=== PATIENT | male | born 1990 | race Caucasian/White ===

== ENCOUNTER 2019-05-17 19:29 | Emergency (ER) | payer OTHER ==
[2019-05-17 20:07] VITALS: O2SAT 96
--- NOTE | 2019-05-17 20:15 | ERPHSYRPT ---
- History of Present Illness Source: patient Exam Limitations: no limitations Patient Subjective Stated Complaint: left lower pain in jaw shooting into front of jaw. dentist said pt needs wisdom teeth removed. pt has had some out but not all. pt states pain is from the back two teeth on the left side bottom. Triage Nursing Assessment: pt states he heard his tooth break two days ago while eating. it has been hurting ever since. no visible swelling or redness to face noted. Physician History: Pt is a 28 y/o male with a recent h/o dental pain secondary to broken tooth. Pt states, broke his tooth two days ago, and now has some pain. No other complains. The tooth is a molar in the left lower jaw. Timing/Duration: abrupt onset Severity: moderate ENT Location: dental Prearrival Treatment: no prearrival treatment Modifying Factors: Improves With: nothing Associated Symptoms: jaw pain (on the L lower jaw) Hx Tetanus, Diphtheria Vaccination/Date Given: No Hx Influenza Vaccination/Date Given: No Hx Pneumococcal Vaccination/Date Given: No Immunizations Up to Date: No - Review of Systems Constitutional: No Fever, No Chills Eyes: No Symptoms Ears, Nose, & Throat: Mouth Pain (secondary to broken tooth.) Respiratory: No Cough, No Dyspnea - Past Medical History Pertinent Past Medical History: No Other Medical History: all wisdom teeth on top removed. trauma to right arm 8 yrs ago - Past Surgical History Past Surgical History: No Other Surgical History: dental surgery - Social History Smoking Status: Current every day smoker How long have you smoked: 8 Exposure to second hand smoke: Yes Drug Use: marijuana Patient Lives Alone: No - Nursing Vital Signs Nursing Vital Signs: Initial Vital Signs Temperature 97.6 F 05/17/19 19:51 Pulse Rate 75 05/17/19 19:51 Respiratory Rate 18 05/17/19 19:51 Blood Pressure 162/90 05/17/19 19:51 O2 Sat by Pulse Oximetry 96 05/17/19 19:51 Pain Scale Pain Intensity 7 - Physical Exam General Appearance: no apparent distress, alert Eye Exam: bilateral eye: PERRL, EOMI Ear Exam: bilateral ear: auricle normal, canal normal Nasal Exam: normal inspection Throat Exam: dental tenderness (left lower jaw, secondary to broken tooth) SpO2: 96 - Course Nursing assessment & vital signs reviewed: Yes - Progress Progress: unchanged Progress Note: 05/17/19 20:13 Pt was instructed to f/u with a dentist. I recommended him to take Ibuprofen OTC for pain, and explained that only a dentist can do anything with a broken tooth. Will see patient in: office Counseled pt/family regarding: need for follow-up - Departure Departure Disposition: Home Clinical Impression: Broken tooth Condition: Stable Critical Care Time: No Additional Instructions: F/U with a dentist and use OTC Ibuprofen for pain.
[2019-05-17 20:41] VITALS: BP 134/84; PULSE 84
== END 2019-05-17 20:38 | disposition home or self-care (01) ==
LOC: ED 19:29
DX: S02.5XXA Fracture of tooth (traumatic), initial encounter for closed fracture (principal); X58.XXXA Exposure to other specified factors, initial encounter; Y93.89 Activity, other specified
CPT/HCPCS: 99283

== ENCOUNTER 2019-09-14 12:16 | Emergency (ER) | payer MEDICAID, OTHER ==
[2019-09-14] MEDS ORDERED: Rocephin 1000 MG INJ IM ONE (12:39)
--- NOTE | 2019-09-14 12:39 | ERPHSYRPT ---
- History of Present Illness Time Seen by Provider: 09/14/19 12:25 Source: patient Exam Limitations: no limitations Patient Subjective Stated Complaint: Pt states "My throat hurts, started yesterday." Triage Nursing Assessment: Pt presented alert and oriented X 3, skin pwd Pt ambualtse with an upright steady gait, able to speak in clear full sentences Pt tonsils swollen and touching. Physician History: ppatient is a 29-year-old male who presents with a complaint of sore throat for 24 hours. He has a history of frequent episodes of strep pharyngitis. He has had a fever at home. Denies other symptoms.. Timing/Duration: hour(s) (24) Cough Quality/Degree: no cough Possible Cause: frequent episodes Modifying Factors: Improves With: nothing Associated Symptoms: fever, sore throat International travel in last 2 weeks: No Allergies/Adverse Reactions: No Known Drug Allergies Allergy (Unverified 09/14/19 12:26) Hx Tetanus, Diphtheria Vaccination/Date Given: No Hx Influenza Vaccination/Date Given: No Hx Pneumococcal Vaccination/Date Given: No Immunizations Up to Date: Yes - Review of Systems Constitutional: Fever Eyes: No Symptoms Ears, Nose, & Throat: Mouth Pain, Throat Pain, Throat Swelling, Painful Swallowing - Past Medical History Pertinent Past Medical History: No Other Medical History: all wisdom teeth on top removed. trauma to right arm 8 yrs ago - Past Surgical History Past Surgical History: Yes Other Surgical History: dental surgery - Social History Smoking Status: Current every day smoker How long have you smoked: years Exposure to second hand smoke: Yes Drug Use: marijuana Patient Lives Alone: No - Nursing Vital Signs Nursing Vital Signs: Initial Vital Signs Temperature 101.5 F 09/14/19 12:20 Pulse Rate 116 H 09/14/19 12:20 Respiratory Rate 18 09/14/19 12:20 Blood Pressure 139/84 09/14/19 12:20 O2 Sat by Pulse Oximetry 99 09/14/19 12:20 Pain Scale Pain Intensity 6 - Physical Exam General Appearance: no apparent distress, alert Eye Exam: PERRL/EOMI, eyes nml inspection Ears, Nose, Throat Exam: TMs normal, moist mucous membranes, pharyngeal erythema , tonsillar exudate Neck Exam: normal inspection, non-tender, supple, full range of motion Respiratory Exam: normal breath sounds, lungs clear, No respiratory distress Cardiovascular Exam: regular rate/rhythm, normal heart sounds Gastrointestinal/Abdomen Exam: soft, No tenderness Back Exam: normal inspection, No CVA tenderness, No vertebral tenderness Extremity Exam: normal inspection, normal range of motion Neurologic Exam: alert, oriented x 3, cooperative, normal mood/affect, sensation nml, No motor deficits Skin Exam: normal color, warm, dry, No rash Lymphatic Exam: No adenopathy SpO2: 99 - Course Nursing assessment & vital signs reviewed: Yes Ordered Tests: Medication Summary Discontinued Medications Generic Name Dose Route Start Last Admin Trade Name Suzie PRN Reason Stop Dose Admin Ceftriaxone Sodium 1,000 mg 09/14/19 12:39 09/14/19 12:48 Rocephin 1000 Mg Inj IM 09/14/19 12:40 1,000 mg STAT ONE Administration Ceftriaxone Sodium Confirm 09/14/19 12:44 Rocephin 1000 Mg Inj Administered 09/14/19 12:45 Dose 1,000 mg .ROUTE .STK-MED ONE Methylprednisolone Sodium Succinate 125 mg 09/14/19 12:40 09/14/19 12:48 Solu-Medrol 125 Mg IM 09/14/19 12:41 125 mg STAT ONE Administration Methylprednisolone Sodium Succinate Confirm 09/14/19 12:44 Solu-Medrol 125 Mg Administered 09/14/19 12:45 Dose 125 mg .ROUTE .STK-MED ONE Lab/Rad Data: Laboratory Results 09/14/19 Range/Units Unknown Group A Strep Antibody POSITIVE (NEGATIVE) - Progress Progress: unchanged Air Movement: good Blood Culture(s) Obtained: No Antibiotics given: Yes - Departure Departure Disposition: Home Clinical Impression: Strep pharyngitis Condition: Stable Critical Care Time: No Referrals: DOCTOR,NO FAMILY [Primary Care Provider] - Instructions: Strep Throat (DC) Prescriptions: Cephalexin Mh 500 mg [Keflex 500 mg] 500 mg PO TID #21 capsule Prednisone 10 mg [Deltasone 10 mg] 10 mg PO TID #12 tablet
[2019-09-14] MEDS ORDERED: solu-MEDROL 125 MG IM ONE (12:40)
[2019-09-14] MEDS ORDERED: solu-MEDROL 125 MG ONE (12:44)
[2019-09-14] MEDS ORDERED: Rocephin 1000 MG INJ ONE (12:44)
[2019-09-14 13:24] VITALS: BP 133/70; PULSE 114
[2019-09-14 13:29] VITALS: O2SAT 99
== END 2019-09-14 13:40 | disposition home or self-care (01) ==
LOC: ED 12:16
DX: J02.0 Streptococcal pharyngitis (principal); R50.9 Fever, unspecified
CPT/HCPCS: 87651; 96372; 99284; J0696; J2930

== ENCOUNTER 2021-03-09 17:10 | Emergency (ER) | payer MEDICAID ==
--- NOTE | 2021-03-09 18:00 | ERPHSYRPT ---
- History of Present Illness Time Seen by Provider: 03/09/21 17:12 Source: patient Exam Limitations: no limitations Patient Subjective Stated Complaint: Patient states he has had sore throat for 5 days and a dry cough. States he started new job today and does not want to be sick. states he has been afebrile Triage Nursing Assessment: Patient presents to ED c/o cough and sore throat x5 days Physician History: 30 years old male presented in the ER with chief complaint of sore throat for the last 5 days with progressive worsening. Patient reported increased swelling both tonsils which are 2 swallow solid food but denies any difficulty breathing. Denies any fever or chills. Does report having some mandibular/cervical and lymph nodes enlargement. Timing/Duration: gradual onset, persistent, days (5) Severity: moderate ENT Location: throat Prearrival Treatment: no prearrival treatment Associated Symptoms: No fever, No chills, No nasal congestion/drainage Allergies/Adverse Reactions: No Known Drug Allergies Allergy (Verified 03/09/21 17:41) Hx Tetanus, Diphtheria Vaccination/Date Given: Yes Hx Influenza Vaccination/Date Given: No Hx Pneumococcal Vaccination/Date Given: No Immunizations Up to Date: Yes Travel Risk - International Travel Have you traveled outside of the country in past 3 weeks: No - Coronavirus Screening Are you exhibiting any of the following symptoms?: No Close contact with a COVID-19 positive Pt in past 14-21 Days: No - Vaccine Status Have you recieved a Covid-19 vaccination: No - Review of Systems Constitutional: No Symptoms Eyes: No Symptoms Ears, Nose, & Throat: Throat Pain, Throat Swelling, Painful Swallowing Respiratory: No Symptoms Cardiac: No Symptoms Abdominal/Gastrointestinal: No Symptoms Musculoskeletal: No Symptoms Skin: No Symptoms Neurological: No Symptoms Psychological: No Symptoms - Past Medical History Pertinent Past Medical History: No Other Medical History: all wisdom teeth on top removed. trauma to right arm 8 yrs ago - Past Surgical History Past Surgical History: Yes Other Surgical History: dental surgery - Social History Smoking Status: Current every day smoker How long have you smoked: years Exposure to second hand smoke: Yes Drug Use: marijuana Patient Lives Alone: Yes - Nursing Vital Signs Nursing Vital Signs: Initial Vital Signs Temperature 98 F 03/09/21 17:32 Pulse Rate 108 H 03/09/21 17:32 Blood Pressure 149/109 03/09/21 17:32 O2 Sat by Pulse Oximetry 100 03/09/21 17:32 Pain Scale Pain Intensity 2 - Physical Exam General Appearance: no apparent distress, alert Eye Exam: bilateral eye: normal inspection, PERRL, EOMI Ear Exam: bilateral ear: auricle normal, canal normal, TM normal Nasal Exam: normal inspection Throat Exam: pharynx swelling, pharynx tenderness, tonsillar exudate, tonsillar swelling, uvula swelling, No tongue swollen, No trismus Neck Exam: normal inspection, non-tender, supple, full range of motion Cardiovascular/Respiratory Exam: normal breath sounds, regular rate/rhythm Abdominal Exam: non-tender, soft, no organomegaly Neurologic Exam: alert, oriented x 3, cooperative Skin Exam: normal color SpO2 Interpretation: normal SpO2: 100 O2 Delivery: Room Air Lab/Rad Data: Laboratory Results 03/09/21 Range/Units 17:49 Group A Strep Antibody DETECTED (NEGATIVE) - Progress Progress: unchanged Progress Note: 03/09/21 17:58 Has bilateral enlarged tonsils approaching midline/kissing uvula. Would start him on antibiotics and a short course of steroid. Recommended supportive care with Tylenol ibuprofen and outpatient follow-up. Counseled pt/family regarding: diagnosis, need for follow-up - Departure Departure Disposition: Home Clinical Impression: Acute pharyngitis Qualifiers: Pharyngitis/tonsillitis etiology: other specified organisms Qualified Code(s): J02.8 - Acute pharyngitis due to other specified organisms Condition: Stable Critical Care Time: No Referrals: DOCTOR,NO FAMILY [Primary Care Provider] - AURELIA LARRY DO [ACTIVE STAFF] - Follow Up with PCP/3 days Instructions: Sore Throat, Adult (DC), Strep Throat (DC) Additional Instructions: Do warm salt water gargles. Take Tylenol/ibuprofen as needed for pain. Take soft diet. Follow-up with primary care physician for reevaluation. Return to ER for worsening pain, difficulty swallowing, difficulty breathing, fever chills or increasing swelling in the throat/etc. Prescriptions: Amoxicillin/Potassium Clav [Augmentin 875-125 Tablet] 875 mg PO BID 10 Days #20 tablet Prednisone 20 mg [Deltasone 20 mg] 60 mg PO DAILY 5 Days #15 tablet
[2021-03-09 18:18] VITALS: BP 107/82; PULSE 96
[2021-03-11 07:40] VITALS: O2SAT 100
== END 2021-03-09 18:23 | disposition home or self-care (01) ==
LOC: ED 17:10
DX: J02.8 Acute pharyngitis due to other specified organisms (principal)
CPT/HCPCS: 87651; 99283

== ENCOUNTER 2021-09-19 17:33 | Emergency (ER) | payer MEDICAID ==
--- NOTE | 2021-09-19 18:45 | ERPHSYRPT ---
- History of Present Illness Time Seen by Provider: 09/19/21 17:39 Source: patient Exam Limitations: no limitations Patient Subjective Stated Complaint: pt c/o symptoms starting 09/15/21, reports fatigue, headache, sensitivity to light, intermittent cough, and no taste. st ates he was exposed to a positive family member. Triage Nursing Assessment: pt is aox3, pt appears in no distress, pupils perrl, afebrile, resps easy and non labored, cap refill < 2 seconds, pt skin pink warm dry. Physician History: 31 years old unvaccinated against COVID-19 presented in the ER with flulike symptoms for the last 3 days. Patient reports off-and-on headache, muscle ache, nasal congestion, nonproductive cough with feeling of malaise, tiredness and lack of energy. He went to work and was recommended to have COVID-19 test done before he can come back. Patient wants COVID-19 test done. He has a moderate headache for the last 3 days, has taken Aleve prior to arrival and does not want any other medication. Timing/Duration: day(s) (3), gradual onset, worse Cough Quality/Degree: mild, dry cough Possible Cause: illness exposure Modifying Factors: Improves With: exertion Associated Symptoms: chills, cough, muscle aches, nasal congestion, sore throat, No wheezing Allergies/Adverse Reactions: No Known Drug Allergies Allergy (Verified 09/19/21 18:20) Hx Tetanus, Diphtheria Vaccination/Date Given: Yes Hx Influenza Vaccination/Date Given: No Hx Pneumococcal Vaccination/Date Given: No Immunizations Up to Date: Yes Travel Risk - International Travel Have you traveled outside of the country in past 3 weeks: No - Coronavirus Screening Are you exhibiting any of the following symptoms?: Yes Symptoms: Cough: New Onset, Loss of Taste or Smell, Headaches/Body Aches/Fatigue Close contact with a COVID-19 positive Pt in past 14-21 Days: Yes - Vaccine Status Have you recieved a Covid-19 vaccination: No - Review of Systems Constitutional: Fatigue, Weakness Eyes: No Symptoms Ears, Nose, & Throat: Nose Congestion, Throat Pain Respiratory: Cough Cardiac: No Symptoms Abdominal/Gastrointestinal: No Symptoms Genitourinary Symptoms: No Symptoms Musculoskeletal: Myalgias Skin: No Symptoms Neurological: Headache Psychological: No Symptoms Endocrine: No Symptoms Hematologic/Lymphatic: No Symptoms Immunological/Allergic: No Symptoms - Past Medical History Pertinent Past Medical History: No Other Medical History: all wisdom teeth on top removed. trauma to right arm 8 yrs ago - Past Surgical History Past Surgical History: Yes Musculoskeletal: Other Other Surgical History: dental surgery. tendon reconstruction r arm - Social History Smoking Status: Current every day smoker How long have you smoked: years Exposure to second hand smoke: Yes Drug Use: marijuana Patient Lives Alone: No - Nursing Vital Signs Nursing Vital Signs: Initial Vital Signs Temperature 97.6 F 09/19/21 18:09 Pulse Rate 71 09/19/21 18:09 Respiratory Rate 18 09/19/21 18:09 Blood Pressure 162/103 09/19/21 18:09 O2 Sat by Pulse Oximetry 97 09/19/21 18:09 Pain Scale Pain Intensity 5 - Physical Exam General Appearance: no apparent distress, alert Eye Exam: PERRL/EOMI, eyes nml inspection Ears, Nose, Throat Exam: normal ENT inspection, TMs normal, pharynx normal, moist mucous membranes Neck Exam: normal inspection, non-tender, supple, full range of motion Respiratory Exam: normal breath sounds, lungs clear Cardiovascular Exam: regular rate/rhythm, normal heart sounds Gastrointestinal/Abdomen Exam: soft, normal bowel sounds, No tenderness Back Exam: normal inspection, normal range of motion Extremity Exam: normal inspection, normal range of motion, pelvis stable Neurologic Exam: alert, oriented x 3, cooperative, alteration hand II-XII nml as tested, normal mood/affect, nml cerebellar function, nml station & gait, sensation nml, No motor deficits Skin Exam: normal color SpO2 Interpretation: normal SpO2: 97 O2 Delivery: Room Air - Progress Progress: unchanged Air Movement: good Progress Note: 09/19/21 18:46 COVID-19 testing is done. Patient is recommended contact/droplet precautions. Offered symptomatic treatment for headache which she refused. Lungs bilateral clear to auscultation and not in any distress, do not think needs any other work-up and is stable for discharge. Blood Culture(s) Obtained: No Antibiotics given: No Counseled pt/family regarding: lab results, diagnosis, need for follow-up - Departure Departure Disposition: Home Clinical Impression: Exposure to COVID-19 virus Condition: Stable Critical Care Time: No Referrals: DOCTOR,NO FAMILY [Primary Care Provider] - Follow up/PCP as directed EVER DIAZ MD [ACTIVE STAFF] - Follow Up with PCP/3 days Instructions: Headache, Adult (DC) Additional Instructions: Take Tylenol/Aleve as needed. Drink plenty of fluids. Follow-up with primary care for reevaluation. Follow contact/droplet precautions until your COVID-19 test is back. Return to ER for any worsening cough, difficulty breathing, intractable headache etc.
[2021-09-19 19:19] VITALS: BP 132/78; PULSE 87; O2SAT 99
== END 2021-09-19 19:16 | disposition home or self-care (01) ==
LOC: ED 17:33
DX: R68.83 Chills (without fever) (principal); R05.9 Cough, unspecified; M79.10 Myalgia, unspecified site; Z20.822 Contact with and (suspected) exposure to COVID-19; R09.81 Nasal congestion; J02.9 Acute pharyngitis, unspecified; Z72.0 Tobacco use
CPT/HCPCS: 99283; U0003

== ENCOUNTER 2022-05-19 19:25 | Emergency (ER) | payer SELFPAY ==
[2022-05-19] MEDS ORDERED: XYLOCAINE 1% HCL 20 ML MDV IJ ONE (19:26)
[2022-05-19 19:32] VITALS: BP 146/90; PULSE 91; O2SAT 97
[2022-05-19] MEDS ORDERED: Rocephin 1000 MG INJ ONE (19:42)
[2022-05-19] MEDS ORDERED: BACTRIM DS TABLET PO ONE (19:42)
--- NOTE | 2022-05-19 19:46 | ERPHSYRPT ---
- History of Present Illness Time Seen by Provider: 05/19/22 19:41 Source: patient Exam Limitations: no limitations Patient Subjective Stated Complaint: I think I have a spider bite on my face. Triage Nursing Assessment: pt ambulated into ER with difficulty. Pt c/o a spider bite to the left side of his chin, which appeared about 3 days ago. 1.8 cm L x 1.4 cm W. Area is scabbed over at the bottom, pustule looking at the top. Surrounding area is red, swollen and tender to touch. Physician History: This is a 31-year-old white male who does not have a primary care physician and came to the emergency room 3 days after he noticed what he thought was maybe a spider bite to the area. However, it occurred at night and he did not actually see an insect bite him. He does have facial hair. He has not had a fever. The swelling has increased and there is tenderness present. It is just below his lower lip on the left side. He did say he squeezed out pus a couple days ago and it seemed to improve but then the swelling increased. Patient states he has no known drug allergies Timing/Duration: day(s) (3) Quality: painful Severity: mild Location: face (Lower lip left side) Possible Causes: no cause identified Associated Symptoms: change in skin texture, No fever Allergies/Adverse Reactions: No Known Drug Allergies Allergy (Verified 05/19/22 19:41) Hx Tetanus, Diphtheria Vaccination/Date Given: Yes Hx Influenza Vaccination/Date Given: No Hx Pneumococcal Vaccination/Date Given: No Immunizations Up to Date: Yes Travel Risk - International Travel Have you traveled outside of the country in past 3 weeks: No - Coronavirus Screening Are you exhibiting any of the following symptoms?: No Close contact with a COVID-19 positive Pt in past 14-21 Days: No - Vaccine Status Have you recieved a Covid-19 vaccination: No - Review of Systems Constitutional: No Symptoms Eyes: No Symptoms Ears, Nose, & Throat: No Symptoms Respiratory: No Symptoms Cardiac: No Symptoms Abdominal/Gastrointestinal: No Symptoms Genitourinary Symptoms: No Symptoms Musculoskeletal: No Symptoms Skin: Induration (And swelling with tenderness left side lower lip and under lower lip) Neurological: No Symptoms Psychological: No Symptoms Endocrine: No Symptoms Hematologic/Lymphatic: No Symptoms Immunological/Allergic: No Symptoms All Other Systems: Reviewed and Negative - Past Medical History Pertinent Past Medical History: Yes Respiratory History: Pneumonia Other Medical History: all wisdom teeth on top removed. trauma to right arm 8 yrs ago - Past Surgical History Past Surgical History: Yes Musculoskeletal: Other Other Surgical History: dental surgery. tendon reconstruction r arm - Social History Smoking Status: Current every day smoker How long have you smoked: 11 Exposure to second hand smoke: Yes Drug Use: marijuana Patient Lives Alone: Yes - Nursing Vital Signs Nursing Vital Signs: Initial Vital Signs Temperature 97.8 F 05/19/22 19:31 Pulse Rate 91 H 05/19/22 19:31 Respiratory Rate 20 05/19/22 19:31 Blood Pressure 146/90 05/19/22 19:31 O2 Sat by Pulse Oximetry 97 05/19/22 19:31 Pain Scale Pain Intensity 3 - Physical Exam General Appearance: no apparent distress, alert, anxiety Eye Exam: PERRL/EOMI, eyes nml inspection Ears, Nose, Throat Exam: moist mucous membranes, other (Lower lip is swollen. There is eschar underneath her inferior to the lower lip on the left side. There is redness and tenderness. There is no abscess at this moment in time.) Neck Exam: normal inspection, non-tender, supple, full range of motion Respiratory Exam: airway intact, No chest tenderness, No respiratory distress Gastrointestinal/Abdomen Exam: No tenderness Rectal Exam: not done Extremity Exam: normal inspection, normal range of motion, pelvis stable Neurologic Exam: alert, oriented x 3, cooperative, union contract representative II-XII nml as tested, normal mood/affect, nml cerebellar function, nml station & gait, sensation nml Skin Exam: other (Indurated, tender, swollen area with eschar present inferior to the lower lip on the left side with swelling of the lower lip.) Lymphatic Exam: No adenopathy SpO2: 97 O2 Delivery: Room Air - Course Nursing assessment & vital signs reviewed: Yes Ordered Tests: Medication Summary Generic Name Dose Route Start Last Admin Trade Name Freq PRN Reason Stop Dose Admin Ceftriaxone Sodium 1,000 mg 05/19/22 19:39 Ceftriaxone Sodium 1000 Mg Inj Vial IM 05/19/22 19:40 STAT ONE Trimethoprim/Sulfamethoxazole 1 tab 05/19/22 19:39 Smz/Tmp Ds Tablet 1 Tablet PO 05/19/22 19:40 STAT ONE - Progress Progress: unchanged - Departure Departure Disposition: Home Clinical Impression: Facial cellulitis, Induration of skin Condition: Stable Critical Care Time: No Referrals: DOCTOR,NO FAMILY [Primary Care Provider] - Follow up/PCP as directed Additional Instructions: Scrub the area 1-2 times a day with warm soapy water. Take your antibiotics as prescribed. Purchase product boilease or similar drawing salve product and follow the directions on the product. Use Tylenol and ibuprofen for pain control. Return to the emergency department in 24 hours for reassessment. Prescriptions: Smz/Tmp Ds Tablet [Bactrim Ds Tablet] 1 udtab PO BID #14 tablet
[2022-05-19] MEDS: Rocephin 1000 MG INJ IM ONE (19:47)
[2022-05-19] MEDS: BACTRIM DS TABLET PO ONE (19:47)
== END 2022-05-19 20:07 | disposition home or self-care (01) ==
LOC: ED 19:25
DX: L03.211 Cellulitis of face (principal); R23.4 Changes in skin texture; Z72.0 Tobacco use; Z28.310 Unvaccinated for COVID-19
CPT/HCPCS: 96372; 99283; J0696; A9270-GY

== ENCOUNTER 2022-07-11 12:51 | Emergency (ER) | payer SELFPAY ==
[2022-07-11 13:00] VITALS: O2SAT 98
[2022-07-11] MEDS ORDERED: MOTRIN 600 MG PO ONE (13:07)
[2022-07-11] MEDS ORDERED: Augmentin 875-125 Tablet PO ONE (13:07)
[2022-07-11] MEDS ORDERED: MOTRIN 600 MG ONE (13:17)
[2022-07-11] MEDS ORDERED: Augmentin 875-125 Tablet ONE (13:17)
--- NOTE | 2022-07-11 13:56 | ERPHSYRPT ---
- History of Present Illness Time Seen by Provider: 07/11/22 13:07 Source: patient Exam Limitations: no limitations Patient Subjective Stated Complaint: Right sided facial swelling Triage Nursing Assessment: Patient ambulated back to ED and transferred self to bed. Patient A+OX 3. Patient's skin pink, warm and dry. Patient complains of right sided facial swelling and pain. Patient states the swelling started 2 days ago. Patient complains of pain to right side of face 4/10. Raised area with redness and hard middle noted to right side of face. Physician History: 32 years old presented in the ER with chief complaint of right facial swelling for the last 2 days. Patient thinks he scratched and pulled a hair with subsequence swelling with dull aching mild to moderate pain. No fever or chills reported. No jaw swelling. Up-to-date with tetanus. Timing/Duration: day(s) (2), constant, gradual onset, worse Quality: painful Severity: moderate Location: face Possible Causes: other Associated Symptoms: malaise, swelling/mass/lumps, No fever Allergies/Adverse Reactions: No Known Drug Allergies Allergy (Verified 07/11/22 12:54) Hx Tetanus, Diphtheria Vaccination/Date Given: Yes Hx Influenza Vaccination/Date Given: No Hx Pneumococcal Vaccination/Date Given: No Immunizations Up to Date: Yes Travel Risk - International Travel Have you traveled outside of the country in past 3 weeks: No - Coronavirus Screening Are you exhibiting any of the following symptoms?: No - Vaccine Status Have you recieved a Covid-19 vaccination: No - Review of Systems Constitutional: No Symptoms Eyes: No Symptoms Ears, Nose, & Throat: Mouth Swelling Respiratory: No Symptoms Cardiac: No Symptoms Abdominal/Gastrointestinal: No Symptoms Musculoskeletal: No Symptoms Skin: Cellulitis Neurological: No Symptoms Psychological: No Symptoms Hematologic/Lymphatic: No Symptoms Immunological/Allergic: No Symptoms - Past Medical History Pertinent Past Medical History: Yes Respiratory History: Pneumonia Other Medical History: all wisdom teeth on top removed. trauma to right arm 8 yrs ago - Past Surgical History Past Surgical History: Yes Musculoskeletal: Other Other Surgical History: dental surgery. tendon reconstruction r arm - Social History Smoking Status: Current every day smoker How long have you smoked: 11 Exposure to second hand smoke: Yes Drug Use: marijuana Patient Lives Alone: Yes - Nursing Vital Signs Nursing Vital Signs: Initial Vital Signs Temperature 97.4 F 07/11/22 12:55 Pulse Rate 99 H 07/11/22 12:55 Respiratory Rate 18 07/11/22 12:55 Blood Pressure 130/93 07/11/22 12:55 O2 Sat by Pulse Oximetry 98 07/11/22 12:55 Pain Scale Pain Intensity 4 - Physical Exam General Appearance: no apparent distress, alert Eye Exam: PERRL/EOMI Ears, Nose, Throat Exam: TMs normal, pharynx normal, other (3 x 2 cm area of swelling within duration. Superficial excoriation of skin. Warm and tender to touch. Negative fluctuation. 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 SpO2 Interpretation: normal SpO2: 98 O2 Delivery: Room Air Ordered Tests: Medication Summary Discontinued Medications Generic Name Dose Route Start Last Admin Trade Name Suzie PRN Reason Stop Dose Admin Amoxicillin/Clavulanate Potassium 875 mg 07/11/22 13:07 07/11/22 13:18 Amox Tr/Potassium Clavulanate 875 Mg Tablet PO 07/11/22 13:08 875 mg STAT ONE Administration Amoxicillin/Clavulanate Potassium Confirm 07/11/22 13:17 Amox Tr/Potassium Clavulanate 875 Mg Tablet Administered 07/11/22 13:18 Dose 875 mg .ROUTE .STK-MED ONE Ibuprofen 600 mg 07/11/22 13:07 07/11/22 13:17 Ibuprofen 600 Mg Tablet PO 07/11/22 13:08 600 mg STAT ONE Administration Ibuprofen Confirm 07/11/22 13:17 Ibuprofen 600 Mg Tablet Administered 07/11/22 13:18 Dose 600 mg .ROUTE .STK-MED ONE - Progress Progress: improved Progress Note: 07/11/22 13:53 Given ibuprofen for symptomatic relief and started on Augmentin. Do not think needs I&D at this point, outpatient follow-up. Discussed signs symptoms of worsening needing return to ER which he seems understanding. Counseled pt/family regarding: diagnosis, need for follow-up - Departure Departure Disposition: Home Clinical Impression: Cellulitis, face Condition: Stable Critical Care Time: No Referrals: DOCTOR,NO FAMILY [Primary Care Provider] - Follow up/PCP as directed CHUNG ROCHA MD [ACTIVE STAFF] - Follow Up with PCP/3 days Instructions: Cellulitis and Erysipelas (Skin Infections) Additional Instructions: Follow-up with primary care for reevaluation. Take Tylenol/ibuprofen as needed. Return to ER for increasing swelling pain or if having discharge/fever chills etc. Prescriptions: Ibuprofen 600 mg PO Q6HPRN PRN 10 Days #20 tablet PRN Reason: Pain Amox Tr/Potass Clav. 875 mg [Augmentin 875-125 Tablet] 875 mg PO BID #14 tablet
[2022-07-11 14:02] VITALS: BP 122/86; PULSE 76
== END 2022-07-11 14:02 | disposition home or self-care (01) ==
LOC: ED 12:51
DX: L03.211 Cellulitis of face (principal); Z72.0 Tobacco use; Z28.310 Unvaccinated for COVID-19
CPT/HCPCS: 99282; A9270-GY

== ENCOUNTER 2022-07-12 23:31 | Emergency (ER) | payer SELFPAY ==
--- NOTE | 2022-07-12 23:35 | ERPHSYRPT ---
- History of Present Illness Time Seen by Provider: 07/12/22 23:35 Source: patient Exam Limitations: no limitations Physician History: This is a 32-year-old white male who is being treated for cellulitis of the right cheek. He was given a prescription for ibuprofen and Augmentin yesterday in this emergency department. He is back again tonight because he thinks that the area is not improved and he is having more pain. He has not had fevers. He does not have a primary care physician. He states that he did fill the medication and has been taking the medication as prescribed. Timing/Duration: yesterday Quality: painful Severity: mild Location: face (Moderate right cheek) Possible Causes: other (Possible folliculitis) Associated Symptoms: change in skin texture, other (Induration and redness right cheek) Allergies/Adverse Reactions: No Known Drug Allergies Allergy (Verified 07/12/22 23:57) Hx Tetanus, Diphtheria Vaccination/Date Given: Yes Hx Influenza Vaccination/Date Given: No Hx Pneumococcal Vaccination/Date Given: No Travel Risk - International Travel Have you traveled outside of the country in past 3 weeks: No - Coronavirus Screening Are you exhibiting any of the following symptoms?: No Close contact with a COVID-19 positive Pt in past 14-21 Days: No - Vaccine Status Have you recieved a Covid-19 vaccination: No - Review of Systems Constitutional: No Symptoms Eyes: No Symptoms Ears, Nose, & Throat: No Symptoms Respiratory: No Symptoms Cardiac: No Symptoms Abdominal/Gastrointestinal: No Symptoms Genitourinary Symptoms: No Symptoms Musculoskeletal: No Symptoms Skin: Cellulitis, Induration (Right cheek right cheek) Neurological: No Symptoms Psychological: No Symptoms Endocrine: No Symptoms Hematologic/Lymphatic: No Symptoms Immunological/Allergic: No Symptoms All Other Systems: Reviewed and Negative - Past Medical History Pertinent Past Medical History: Yes Respiratory History: Pneumonia Other Medical History: all wisdom teeth on top removed. trauma to right arm 8 yrs ago - Past Surgical History Past Surgical History: Yes Musculoskeletal: Other Other Surgical History: dental surgery. tendon reconstruction r arm - Social History Smoking Status: Current every day smoker How long have you smoked: 11 Exposure to second hand smoke: Yes Drug Use: marijuana Patient Lives Alone: Yes - Nursing Vital Signs Nursing Vital Signs: Initial Vital Signs Temperature 98.3 F 07/12/22 23:42 Pulse Rate 110 H 07/12/22 23:42 Respiratory Rate 18 07/12/22 23:42 Blood Pressure 152/90 07/12/22 23:42 O2 Sat by Pulse Oximetry 96 07/12/22 23:42 Pain Scale Pain Intensity 8 - Physical Exam General Appearance: no apparent distress, alert, anxiety Eye Exam: PERRL/EOMI, eyes nml inspection Ears, Nose, Throat Exam: normal ENT inspection, moist mucous membranes Neck Exam: normal inspection Respiratory Exam: airway intact, No chest tenderness, No respiratory distress Cardiovascular Exam: tachycardia Gastrointestinal/Abdomen Exam: soft, normal bowel sounds, No tenderness Rectal Exam: not done Back Exam: normal inspection, normal range of motion, No CVA tenderness, No vertebral tenderness Extremity Exam: normal inspection, normal range of motion, pelvis stable Neurologic Exam: alert, oriented x 3, cooperative, 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, normal mood/affect, nml cerebellar function, nml station & gait, sensation nml Skin Exam: other (Cellulitis and induration of the right cheek without an area of abscess.) Lymphatic Exam: No adenopathy SpO2 Interpretation: normal O2 Delivery: Room Air Ordered Tests: Medication Summary Discontinued Medications Generic Name Dose Route Start Last Admin Trade Name Freq PRN Reason Stop Dose Admin Hydrocodone Bitart/Acetaminophen 1 tab 07/13/22 00:19 Hydrocodone/Apap 5/325 1 Tab Tablet PO 07/13/22 00:20 STAT ONE Hydrocodone Bitart/Acetaminophen 2 tab 07/13/22 00:20 Hydrocodone/Apap 5/325 1 Tab Tablet PO 07/13/22 00:21 SENT HOME W/ PATIENT ONE Ceftriaxone Sodium 1,000 mg 07/13/22 00:18 Ceftriaxone Sodium 1000 Mg Inj Vial IM 07/13/22 00:19 STAT ONE - Progress Progress: unchanged Counseled pt/family regarding: diagnosis, need for follow-up - Departure Departure Disposition: Home Clinical Impression: Cellulitis of right external cheek Condition: Stable Critical Care Time: No Referrals: DOCTOR,NO FAMILY [Primary Care Provider] - Follow up/PCP as directed Additional Instructions: Keep area clean daily with soap and water. Take your antibiotics as prescribed. Use warm compresses to the site 2 times a day. After each compress apply boil ease [id number] (drawing salve) as directed on the product. Follow-up with your primary care physician for further evaluation and for further pain control as needed.
[2022-07-12 23:52] VITALS: BP 152/90; O2SAT 96
[2022-07-13] MEDS ORDERED: Rocephin 1000 MG INJ IM ONE (00:18)
[2022-07-13] MEDS ORDERED: NORCO 5/325 MG PO ONE ×2 (00:19→00:20)
[2022-07-13] MEDS ORDERED: NORCO 5/325 MG ONE (00:32)
[2022-07-13] MEDS ORDERED: Rocephin 1000 MG INJ ONE (00:33)
[2022-07-13 01:12] VITALS: PULSE 105
== END 2022-07-13 01:12 | disposition home or self-care (01) ==
LOC: ED 23:31
DX: L03.211 Cellulitis of face (principal); Z72.0 Tobacco use; Z28.310 Unvaccinated for COVID-19
CPT/HCPCS: 96372; 99283; J0696; A9270-GY

== ENCOUNTER 2023-02-22 13:44 | Emergency (ER) | payer OTHER ==
--- NOTE | 2023-02-22 14:24 | ERPHSYRPT ---
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 Patient has a history of "ringworm" to the same area. P parveen treated the area with athlete's foot cream per patient. Symptoms/rash resolved. Patient is here as the rash has reoccurred. No other systemic manifestations. Patient does not have a primary care doctor. Patient denies pain. Patient states the area is occasionally pruritic. Patient appears comfortable at this time. No active pruritus. Patient is otherwise healthy. He voices no other complaints or concerns at this time. Portions of this note were created with voice recognition technology. There may be grammatical, spelling, punctuation or sound alike errors Timing/Duration: week(s) (1 week) Severity: mild Modifying Factors: Improves With: other Associated Symptoms: denies symptoms Allergies/Adverse Reactions: No Known Drug Allergies Allergy (Verified 02/22/23 14:00) Home Medications: No Reportable Medications [No Reported Medications] 02/22/23 [History] Hx Tetanus, Diphtheria Vaccination/Date Given: Yes Hx Influenza Vaccination/Date Given: No Hx Pneumococcal Vaccination/Date Given: No Travel Risk - International Travel Have you traveled outside of the country in past 3 weeks: No - Coronavirus Screening Are you exhibiting any of the following symptoms?: No Close contact with a COVID-19 positive Pt in past 14-21 Days: No - Vaccine Status Have you recieved a Covid-19 vaccination: No - Review of Systems Constitutional: No Symptoms, No Fever, No Chills Eyes: No Symptoms Ears, Nose, & Throat: No Symptoms Respiratory: No Symptoms, No Cough, No Dyspnea Cardiac: No Symptoms, No Chest Pain, No Edema, No Syncope Abdominal/Gastrointestinal: No Symptoms, No Abdominal Pain, No Nausea, No Vomiting, No Diarrhea Genitourinary Symptoms: No Symptoms, No Dysuria Musculoskeletal: No Symptoms, No Back Pain, No Neck Pain Skin: No Symptoms, No Rash Neurological: No Symptoms, No Dizziness, No Focal Weakness, No Sensory Changes Psychological: No Symptoms Endocrine: No Symptoms Hematologic/Lymphatic: No Symptoms Immunological/Allergic: No Symptoms All Other Systems: Reviewed and Negative - Past Medical History Pertinent Past Medical History: Yes Respiratory History: Pneumonia Other Medical History: all wisdom teeth on top removed. trauma to right arm 8 yrs ago - Past Surgical History Past Surgical History: Yes Musculoskeletal: Other Other Surgical History: dental surgery. tendon reconstruction r arm - Social History Smoking Status: Former smoker How long have you smoked: 11 Exposure to second hand smoke: Yes Drug Use: marijuana Patient Lives Alone: No - Nursing Vital Signs Nursing Vital Signs: Initial Vital Signs Temperature 97.9 F 02/22/23 13:50 Pulse Rate 89 02/22/23 13:50 Blood Pressure 99/71 02/22/23 13:50 O2 Sat by Pulse Oximetry 97 02/22/23 13:50 Pain Scale Pain Intensity 0 - Physical Exam General Appearance: no apparent distress, alert Eye Exam: PERRL/EOMI, eyes nml inspection Ears, Nose, Throat Exam: normal ENT inspection, TMs normal, pharynx normal, moist mucous membranes Neck Exam: normal inspection, non-tender, supple, full range of motion Respiratory Exam: normal breath sounds, lungs clear, airway intact, No respiratory distress Cardiovascular Exam: regular rate/rhythm, normal heart sounds, normal peripheral pulses Gastrointestinal/Abdomen Exam: soft, normal bowel sounds, No tenderness, No mass Back Exam: normal inspection, normal range of motion, No CVA tenderness, No vert ebral tenderness Extremity Exam: normal inspection, normal range of motion, pelvis stable, other (3 areas of ringworm observed at the volar aspect of left forearm. Patient had similar findings approximately 3 months ago that resolved with application of time fungal cream), No tenderness (The involved upper extremity is neurovascular tact distally. Compartments are soft. Cap refill less than 2 seconds) Neurologic Exam: alert, oriented x 3, cooperative, normal mood/affect, nml cerebellar function, nml station & gait, sensation nml, No motor deficits Skin Exam: normal color, warm, dry, No rash Lymphatic Exam: No adenopathy SpO2 Interpretation: normal SpO2: 97 O2 Delivery: Room Air - Course Nursing assessment & vital signs reviewed: Yes - Progress Progress: unchanged Progress Note: 32-year-old male presents to our ED with a infection to the volar aspect of left forearm. Remaining physical exam nonremarkable. A clotrimazole prescription was provided to patient. Patient does not have a primary care doctor. Patient was given follow-up with Dr. Mahoney. Patient voices no other complaints or concerns at this time. Complexity of problem addressed is low acute uncomplicated Complexity of data reviewed and analyzed is none. No specialized testing ordered. Diagnosis made based on history and physical examination. Risk of complication and or risk morbidity/mortality patient management is moderate. A prescription for clotrimazole was provided to patient. Patient was also provided a follow-up with Dr. Mahoney. Patient agrees to follow-up with Dr. Mahoney within 48 hours for reevaluation. There are no social determinants of health present to impede follow-up. Vital stable. Time to discharge is approximately 10 minutes. Plan of care established via shared decision making. Patient voices no other complaints or concerns at this time. Portions of this note were created with voice recognition technology. There may be grammatical, spelling, punctuation or sound alike errors 02/22/23 14:28 Counseled pt/family regarding: diagnosis, need for follow-up - Departure Departure Disposition: Home Clinical Impression: Tinea Condition: Stable Critical Care Time: No Referrals: DOCTOR,NO FAMILY [Primary Care Provider] - Follow up/PCP as directed GREGG MAHONEY MD [ACTIVE STAFF] - Follow up/PCP as directed Additional Instructions: Discharge/Care Plan DEISYARIELA HINDS was seen on 02/22/23 in the Emergency Room. The patient was counseled regarding Diagnosis,Lab results, Imaging studies, need for follow up and when to return to the Emergency Room. Prescriptions given: Discharge Note I have spoken with the patient and/or caregivers. I have explained the patient's condition, diagnosis and treatment plan based on the information available to me at this time. I have answered the patient's and/or caregiver's questions and addressed any concerns. The patient and/or caregivers have as good understanding of the patient's diagnosis, condition and treatment plan as can be expected at this point. The vital signs have been stable. The patient's condition is stable and appropriate for discharge from the emergency department. The patient will pursue further outpatient evaluation with the primary care physician or other designated or consulting physician as outlined in the discharge instructions. The patient and/or caregivers are agreeable to this plan of care and follow-up instructions have been explained in detail. The patient and/or caregivers have received these instruction. The patient/and or caregivers are aware that any significant change in condition or worsening of symptoms should prompt an immediate return to this or the closest emergency department or call 911.
[2023-02-22 14:41] VITALS: BP 130/82; PULSE 88; O2SAT 96
== END 2023-02-22 14:40 | disposition home or self-care (01) ==
LOC: ED 13:44
DX: B35.9 Dermatophytosis, unspecified (principal); Z28.310 Unvaccinated for COVID-19
CPT/HCPCS: 99281

== ENCOUNTER 2024-07-12 18:26 | Emergency (ER) | payer OTHER ==
[2024-07-12 18:39] VITALS: BP 138/92; PULSE 95; RESP 20; TEMP 98.4; O2SAT 97
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
[2024-07-12 19:07] LABS: Absolute Neutrophil Ct (ANC) 6.07 x10^3/uL (1.78-5.38); BASOPHIL % 0.7 % (0.2-1.2); Basophil (Absolute #) 0.07 x10^3/uL (0.01-0.08); Eosinophil % 2.6 % (0.8-7.0); Eosinophil (Absolute #) 0.25 x10^3/uL (0.04-0.54); Hematocrit 38.7 % (40.1-51.0); Hemoglobin 12.2 g/dL (13.7-17.5); IMMATURE GRAN # 0.02 x10^3u/L (0.001-0.031); IMMATURE GRAN % 0.2 % (0.001-0.429); Lymphocyte (Absolute #) 2.62 x10^3/uL (1.32-3.57); Lymphocytes % 26.9 % (21.8-53.1); Mean Cell Volume 62.7 fL (79.0-92.2); Mean Corpuscular Hemoglobin 19.8 pg (25.7-32.2); Mean Corpuscular Hgb Concent. 31.5 g/dL (32.3-36.5); Mean Platelet Volume 9.5 fL (9.4-12.4); Monocyte (Absolute #) 0.72 x10^3/uL (0.30-0.82); Monocytes % 7.4 % (5.3-12.2); Neutrophil % 62.2 % (34.0-67.9); Platelet Count 327 x10^3/uL (163-337); Red Blood Count 6.17 x10^6/uL (4.63-6.08); Red Cell Distribution Width 16.2 % (11.6-14.4); White Blood Count 9.8 x10^3/uL (4.23-9.07)
[2024-07-12 19:25] LABS: ANION GAP 12.4 MEQ/L (5-15); BILIRUBIN,TOTAL 0.7 mg/dL (0.2-1.3); Creatinine 1 0.79 mg/dL (0.66-1.25); EST GLOMERULAR FILTRATION RATE 121.1 ML/MIN; Potassium 3.6 mmol/L (3.5-5.1); Total Protein 6.9 g/dL (6.3-8.2)
[2024-07-12 19:34] LABS: INR 0.94 (0.8-3.0); PROTIME 10.3 SECONDS (9.4-12.5)
[2024-07-14 07:09] LABS: HBsAg Screen Negative (Negative); HCV Ab Non Reactive (Non Reactive); Hep B Core Ab, IgM Negative (Negative); RPR Non Reactive (Non Reactive)
[2024-07-14 12:17] LABS: HIV Screen 4th Generation wRfx Non Reactive (Non Reactive); Hep A Ab, IgM Negative (Negative)
== END 2024-07-12 19:15 | disposition home or self-care (01) ==
LOC: ED 18:26
DX: S31.813A Puncture wound without foreign body of right buttock, initial encounter (principal); W46.0XXA Contact with hypodermic needle, initial encounter; Z72.0 Tobacco use
CPT/HCPCS: 36415; 80053; 80074; 85025; 85610; 86592; 87389; 99282